=== PATIENT | male | born 1955 | race Caucasian/White ===

== ENCOUNTER 2016-10-31 08:08 | Outpatient (CLI) | payer OTHER ==
[2016-10-31 13:00] LABS: BASOPHILS % (AUTO) 0.6 %; EOSINOPHILS # (AUTO) 0.1 10^3/uL (0.0-0.7); HCT - HEMATOCRIT 46.9 % (42.0-52.0); LYMPHOCYTES # (AUTO) 1.8 10^3/uL (1.5-3.5); LYMPHOCYTES % (AUTO) 28.5 %; MEAN CORPUSCULAR HEMOGLOBIN 29.6 pg (27.0-31.0); MEAN CORPUSCULAR HGB CONC 34.1 g/dL (32.0-36.0); MEAN CORPUSCULAR VOLUME 86.6 fL (80.0-94.0); MEAN PLATELET VOLUME 8.4 fL (7.4-11.4); MONOCYTES # (AUTO) 0.6 10^3/uL (0.0-1.0); MONOCYTES % (AUTO) 8.6 %; NEUTROPHILS # (AUTO) 3.9 10^3/uL (1.5-6.6); NEUTROPHILS % (AUTO) 60.3 %; NUCLEATED RED BLOOD CELLS AUTO 0.1 /100WBC; RED BLOOD COUNT 5.41 10^6/uL (4.70-6.10); RED CELL DISTRIBUTION WIDTH 13.7 % (12.0-15.0); UNCORRECTED WHITE BLOOD COUNT 6.5 x10^3/uL; WHITE BLOOD COUNT 6.5 x10^3/uL (4.8-10.8)
[2016-10-31 13:02] LABS: ALBUMIN/GLOBULIN RATIO 1.8 (1.0-2.2); BILIRUBIN,TOTAL 0.6 mg/dL (0.2-1.0); CALCIUM 9.6 mg/dL (8.5-10.3); CREATININE 1.1 mg/dL (0.6-1.2); POTASSIUM 4.3 mmol/L (3.5-5.0); URIC ACID 6.4 mg/dL (2.6-7.2)
[2016-10-31 13:22] LABS: CHOL/HDL RATIO 4.7 (<5.0); CHOLESTEROL 212 mg/dL; HDL CHOLESTEROL 45 mg/dL; LDL/HDL RATIO 2.8 (<3.6); TRIGLYCERIDES 195 mg/dL; VLDL CHOLESTEROL 39 mg/dL
== END 2016-10-31 08:09 | disposition home or self-care (01) ==
LOC: LAB.WCP 08:08
PROVIDERS: ATTEND Physician Assistant Medical
DX: Z00.00 Encounter for general adult medical examination without abnormal findings (principal); M10.9 Gout, unspecified; Z12.5 Encounter for screening for malignant neoplasm of prostate
CPT/HCPCS: 36415; 80053; 80061; 84153; 84443; 84550; 85025

== ENCOUNTER 2016-11-08 12:28 | Outpatient (CLI) | payer OTHER ==
[2016-11-08 15:00] LABS: BILIRUBIN,URINE NEGATIVE (NEGATIVE)
[2016-11-08 15:34] LABS: UR CULTURE IF IND NOT INDICATED; WBC,URINE 0-3 /HPF (0-3)
== END 2016-11-08 12:29 | disposition home or self-care (01) ==
LOC: LAB.R 12:28
PROVIDERS: ATTEND Physician Assistant Medical
DX: R31.9 Hematuria, unspecified (principal)
CPT/HCPCS: 81001; 87086

== ENCOUNTER 2016-11-21 10:40 | Outpatient (CLI) | payer OTHER ==
--- NOTE | 2016-11-21 12:52 | CT Report ---
CT OF SINUSES WITHOUT CONTRAST: 11/21/2016 CLINICAL INDICATION: Chronic sinusitis. COMPARISON: 10/25/2006. TECHNIQUE: Axial CT images of the paranasal sinuses were obtained without contrast, following which s agittal and coronal reconstructions were performed. FINDINGS: Leftward deviation of the nasal septum is stable. The paranasal sinuses are clear. The ost iomeatal units are patent. The visualized orbital contents are unremarkable. No osseous destruction i s seen. The visualized mastoid air cells are normally pneumatized. IMPRESSION: STABLE LEFTWARD DEVIATION OF THE SEPTUM. NO EVIDENCE OF SINUSITIS. In accordance with CT protocol optimization, one or more of the following dose reduction techniques w ere utilized for this exam: automated exposure control, adjustment of mA and/or KV based on patient size, or use of iterative reconstructive technique. JOB #: [id number] EXT JOB #:[id number]
== END 2016-11-21 10:41 | disposition home or self-care (01) ==
LOC: DI 10:40
PROVIDERS: ATTEND Physician Assistant Medical
DX: J34.2 Deviated nasal septum (principal)
CPT/HCPCS: 70486

== ENCOUNTER 2017-04-06 09:11 | Outpatient (CLI) | payer OTHER ==
--- NOTE | 2017-04-07 14:53 | XRAY Report ---
EXAM: BILATERAL KNEE RADIOGRAPHY EXAM DATE: 04/06/2017 09:39 AM. CLINICAL HISTORY: KNEE Pain, bilateral. COMPARISON: None. TECHNIQUE: Each knee, 3 views. FINDINGS: Bones: Osteopenia. No definite fracture or other bone lesion. Joints: Bilateral medial joint space narrowing, right worse on left, with small amount of sclerosis o n the right and mild bilateral marginal lipping. At least 2 small loose bodies on the right. No defin ite joint effusion. Soft Tissues: Unremarkable. IMPRESSION: Moderate degenerative joint disease, right worse on left, with loose bodies on the right. [facility] Referring Provider Line: [phone] SITE ID: [id number]
== END 2017-04-06 09:12 | disposition home or self-care (01) ==
LOC: DI 09:11
PROVIDERS: ATTEND Physician Assistant Medical
DX: M17.0 Bilateral primary osteoarthritis of knee (principal); M23.41 Loose body in knee, right knee

== ENCOUNTER 2017-05-13 11:25 | Emergency (ER) | payer OTHER ==
--- NOTE | 2017-05-13 12:28 | ED Physician Documentation ---
PD HPI LOWER EXT INJURY - Stated complaint Stated Complaint: L LEG LUMP,SWELLING,RED,PX - Chief complaint Chief Complaint: Ext Problem - History obtained from History obtained from: Patient - History of Present Illness PD HPI LOW EXT INJURY LOCATION: Other (About 10 days ago he took a knee to his knee while taking playing basketball and developed a hematoma on the superomedial part of the left murphy. Over the next few days he developed calf swelling and tenderness down the calf with bruising all the way down to the foot. He is able to walk and bear weight without pain.There is no chest pain, trouble breathing, or history of DVT/PE.) Review of Systems Constitutional: reports: Reviewed and negative Cardiac: reports: Reviewed and negative Respiratory: reports: Reviewed and negative PD PAST MEDICAL HISTORY - Present Medications Home Medications: Ambulatory Orders Medication Instructions Recorded Confirmed Aspirin [Adult Aspirin Regimen] 81 mg PO DAILY 05/13/17 05/13/17 Diclofenac Sodium [Voltaren] 100 gm TOP BID 05/13/17 05/13/17 Esomeprazole Magnesium [Nexium] 20 mg PO DAILY 05/13/17 05/13/17 Febuxostat [Uloric] 40 mg PO DAILY 05/13/17 05/13/17 Montelukast [Singulair] 10 mg PO DAILY 05/13/17 05/13/17 PARoxetine HCl [Paroxetine HCl] 20 mg PO DAILY 05/13/17 05/13/17 Zolpidem Tartrate [Ambien] 10 mg PO DAILY 05/13/17 05/13/17 - Allergies Allergies/Adverse Reactions: Allergies Allergy/AdvReac Type Severity Reaction Status Date / Time No Known Drug Allergies Allergy Verified 05/13/17 12:14 PD ED PE NORMAL - Vitals Vital signs reviewed: Yes - General General: Alert and oriented X 3, No acute distress - Extremities Extremities: Other (There is a hematoma to the medial side of the tibial plateau that he says is improved but not gone. There is no tenderness of the tibia itself or any bony tenderness of the knee or fibula. He does have significant edema of that calf with ecchymosis tracking down into the foot. Good pedal pulses.) - Neuro Neuro: Alert and oriented X 3, Normal speech Results - Vitals Vitals: Vital Signs - 24 hr 05/13/17 05/13/17 12:06 14:34 Temperature 36.5 C Heart Rate 60 45 L Respiratory 18 12 Rate Blood Pressure 125/83 H 132/77 H O2 Saturation 94 96 Oxygen O2 Source Room air - Rads (name of study) LLE DVT scan Radiology: EMP read contemporaneously (No DVT, he does have a 6.5 x 1.4 x 3 cm hematoma) Departure - Departure Disposition: 01 Home, Self Care Clinical Impression: Hematoma Leg pain Qualifiers: Laterality: left Qualified Code(s): M79.605 - Pain in left leg Condition: Good Record reviewed to determine appropriate education?: Yes Instructions: ED Hematoma Comments: Check with your doctor in 1 week if not improving. Return if worse. Your blood pressure was elevated today on check into the emergency department. This does not mean that you have hypertension, it is a common phenomenon to come to the emergency department and have elevated blood pressure. I recommend that you see your primary care physician within the week to have it rechecked when you are feeling better.
--- NOTE | 2017-05-13 13:38 | Ultrasound Report ---
EXAM: LEFT LOWER EXTREMITY VENOUS ULTRASOUND EXAM DATE: 05/13/2017 01:19 PM. CLINICAL HISTORY: Leg swelling p injury. COMPARISON: None. TECHNIQUE: Real-time sonographic vascular imaging was performed by the stripper printed circuit boards through the lower extremity utilizing both color-flow and Doppler spectral analysis. Multiple electroplating sales representative static gilberto ges were saved for review. FINDINGS: Common Femoral Vein (CFV): Normal. CFV-GSV Junction: Normal. Profunda Femoral Vein (PFV): Normal. Femoral Vein (FV) Prox: Normal. Femoral Vein (FV) Mid: Normal. Femoral Vein (FV) Dist: Normal. Popliteal Vein: Normal. Posterior Tibial Veins: Normal. Peroneal Veins: Normal. Contralateral Side CFV: Normal. Other: There is a fluid collection which is palpable and located inferior to the knee measuring 6.5 x 1.4 x 3 cm. IMPRESSION: 1. Negative for deep venous thrombosis. 2. Subcutaneous fluid collection located inferior to knee, palpable and measuring 6.5 x 1.4 x 3 cm. I n setting of trauma, most likely hematoma. [facility] Referring Provider Line: [phone] SITE ID: [id number]
[2017-05-13 14:35] VITALS: BP 132/77
== END 2017-05-13 14:00 | disposition home or self-care (01) ==
LOC: ED 11:25
DX: S80.02XA Contusion of left knee, initial encounter (principal); W51.XXXA Accidental striking against or bumped into by another person, initial encounter; Y93.67 Activity, basketball; M79.605 Pain in left leg; R03.0 Elevated blood-pressure reading, without diagnosis of hypertension
CPT/HCPCS: 99283

== ENCOUNTER 2017-09-11 18:51 | Emergency (ER) | payer OTHER ==
[2017-09-11 19:03] VITALS: BP 148/77
--- NOTE | 2017-09-11 19:09 | ED Physician Documentation ---
PD HPI HEAD INJURY - Stated complaint Stated Complaint: CHEEK INJURY - Chief complaint Chief Complaint: Trauma Hd/Nk - History obtained from History obtained from: Patient - History of Present Illness Mechanism of head injury: Other (He was helping his grandson with [employer] and he took a line drive to the left jaw. Pain is minimal at rest but he is having difficulty moving the jaw and feels like it might be out of place.) Review of Systems Nose: denies: Rhinorrhea / runny nose, Epistaxis Musculoskeletal: denies: Neck pain, Back pain Neurologic: denies: Headache, LOC PD PAST MEDICAL HISTORY - Present Medications Home Medications: Ambulatory Orders Medication Instructions Recorded Confirmed Aspirin [Adult Aspirin Regimen] 81 mg PO DAILY 05/13/17 05/13/17 Esomeprazole Magnesium [Nexium] 20 mg PO DAILY 05/13/17 05/13/17 Febuxostat [Uloric] 40 mg PO DAILY 05/13/17 05/13/17 Montelukast [Singulair] 10 mg PO DAILY 05/13/17 05/13/17 PARoxetine HCl [Paroxetine HCl] 20 mg PO DAILY 05/13/17 05/13/17 Verapamil HCl [Verapamil ER] 240 mg 09/11/17 - Allergies Allergies/Adverse Reactions: Allergies Allergy/AdvReac Type Severity Reaction Status Date / Time probenecid Allergy Unknown Verified 09/11/17 19:03 PD ED PE NORMAL - Vitals Vital signs reviewed: Yes - General General: Alert and oriented X 3, No acute distress - HEENT HEENT: PERRL, EOMI, Other (There is a large contusion just above the angle of the jaw on the left, and he is tender over the TMJ in the area inferior to this but has good range of motion of the jaw no obvious intraoral injury.) - Neck Neck: Supple, no meningeal sign, No bony TTP - Neuro Neuro: Alert and oriented X 3, Normal speech - Psych Psych: Normal mood, Normal affect Results - Vitals Vitals: Vital Signs - 24 hr 09/11/17 18:52 Temperature 36.5 C Heart Rate 55 L Respiratory 20 Rate Blood Pressure 148/77 H O2 Saturation 98 Oxygen O2 Source Room air - Rads (name of study) CT facial bones Radiology: EMP read contemporaneously (Facial contusion and edema without fracture) Departure - Departure Disposition: 01 Home, Self Care Clinical Impression: Facial contusion Qualifiers: Encounter type: initial encounter Qualified Code(s): S00.83XA - Contusion of other part of head, initial encounter Condition: Good Record reviewed to determine appropriate education?: Yes Instructions: ED Head Injury Closed, ED Contusion Face Comments: Your blood pressure was elevated today on check into the emergency department. This does not mean that you have hypertension, it is a common phenomenon to come to the emergency department and have elevated blood pressure. I recommend that you see your primary care physician within the week to have it rechecked when you are feeling better.
--- NOTE | 2017-09-11 19:50 | CT Report ---
EXAM: CT MAXILLOFACIAL WITHOUT CONTRAST EXAM DATE: 09/11/2017 07:28 PM. CLINICAL HISTORY: Left jaw injury. Hit on left side of face with baseball. COMPARISONS: Sinus CT 11/21/2016. TECHNIQUE: Thin-section axial images were acquired of the face without contrast. Post-processing: Cor onal and sagittal reformats. Other: None. In accordance with CT protocol optimization, one or more of the following dose reduction techniques w ere utilized for this exam: automated exposure control, adjustment of mA and/or KV based on patient s ize, or use of iterative reconstructive technique. FINDINGS: Bones: Leftwards deviation and spurring of the bony nasal septum with associated focal occlusion of t he naris. No fracture or bone lesion. Temporomandibular Joints: The temporomandibular joints are symmetric and normally located. Sinuses: Minimal mucosal thickening in the inferior left frontal sinus, right maxillary sinus roof, a nd left maxillary sinus. Otherwise clear. No fluid levels. Other: Superficial fat stranding in the left buccal region, compatible with edema/contusion. IMPRESSION: 1. Left facial edema/contusion. 2. No acute bony abnormality. [facility] Referring Provider Line: [phone] SITE ID: [id number]
--- NOTE | 2017-09-11 19:50 | CT Preliminary Report ---
Exam: CT FACIAL BONES W/O IMPRESSION: 1. Left facial edema/contusion. 2. No acute bony abnormality. [facility] SITE ID: [id number]
== END 2017-09-11 20:11 | disposition home or self-care (01) ==
LOC: ED 18:51
DX: S00.83XA Contusion of other part of head, initial encounter (principal); R03.0 Elevated blood-pressure reading, without diagnosis of hypertension; W21.03XA Struck by baseball, initial encounter; Y93.64 Activity, baseball; Z79.82 Long term (current) use of aspirin
CPT/HCPCS: 70486; 99282; 99283

== ENCOUNTER 2018-01-14 11:44 | Outpatient (CLI) | payer OTHER | END 2018-01-14 11:45 | disposition home or self-care (01) | LOC: LAB.R 11:44 | PROVIDERS: ATTEND Internal Medicine Gastroenterology | DX: R19.7 Diarrhea, unspecified (principal) | CPT/HCPCS: 81599; 87045; 87046; 87177; 87209; 87329; 87493 ==

== ENCOUNTER 2018-06-13 15:39 | Emergency (ER) | payer OTHER ==
[2018-06-13] MEDS ORDERED: diphenhydrAMINE INJ 50 MG/ML VIAL IVP STA (17:37)
[2018-06-13] MEDS ORDERED: SODIUM CHLORIDE 0.9% 1,000 ML IV ONE (17:37)
[2018-06-13] MEDS ORDERED: PROCHLORPERAZINE 10 MG/2 ML VIAL IVP STA (17:37)
[2018-06-13] MEDS ORDERED: DEXAMETHASONE 10 MG/ML VIAL IVP STA (17:38)
[2018-06-13] MEDS ORDERED: KETOROLAC 30 MG/ML VIAL IVP STA (17:40)
--- NOTE | 2018-06-13 17:41 | ED Physician Documentation ---
PD HPI HEADACHE - Stated complaint Stated Complaint: AMAYA - Chief complaint Chief Complaint: Neuro - History obtained from History obtained from: Patient, Family (spouse) - History of Present Illness Timing - onset: How many days ago (3) Timing - details: Still present Worst headache ever?: Worst headache ever? (No) Location: Right Worsened by: Light, Moving Similar symptoms before: Diagnosis (History of migraine headaches.) - Treatment prior to arrival Treatment prior to arrival: Aimovig injection, without relief. - Additional information Additional information: The patient is a 62-year-old male with history of migraine headaches, who presents with right sided headache of 3 days' duration. He reports associated photosensitivity. He denies fever, nausea or vomiting, numbness or weakness. He has given himself an Aimovig injection, without relief. The last time he had a headache this bad was a couple of years ago. Review of Systems Constitutional: denies: Fever Eyes: reports: Photophobia. denies: Decreased vision Ears: denies: Tinnitus/ringing Nose: denies: Congestion Throat: denies: Sore throat Cardiac: denies: Chest pain / pressure, Palpitations Respiratory: denies: Dyspnea, Cough GI: denies: Abdominal Pain, Nausea, Vomiting : denies: Dysuria Skin: denies: Rash Musculoskeletal: denies: Neck pain, Back pain Neurologic: reports: Headache. denies: Focal weakness, Numbness PD PAST MEDICAL HISTORY - Past Medical History Cardiovascular: Arrhythmia (History of ventricular trigeminy.) Neuro: Headaches GI: GERD - Past Surgical History Past Surgical History: No - Present Medications Home Medications: Ambulatory Orders Medication Instructions Recorded Confirmed Aspirin [Adult Aspirin Regimen] 81 mg PO DAILY 05/13/17 06/13/18 Esomeprazole Magnesium [Nexium] 20 mg PO DAILY 05/13/17 06/13/18 Febuxostat [Uloric] 40 mg PO DAILY 05/13/17 06/13/18 Montelukast [Singulair] 10 mg PO DAILY 05/13/17 06/13/18 PARoxetine HCl [Paroxetine HCl] 20 mg PO DAILY 05/13/17 06/13/18 Erenumab-Aooe [Aimovig 70 mg SQ ONCE 06/13/18 06/13/18 Autoinjector] - Allergies Allergies/Adverse Reactions: Allergies Allergy/AdvReac Type Severity Reaction Status Date / Time probenecid Allergy Unknown Verified 06/13/18 15:54 - Social History Does the pt smoke?: No Smoking Status: Never smoker Does the pt drink ETOH?: No Does the pt have substance abuse?: No - Immunizations Immunizations are current?: Yes - POLST Patient has POLST: No PD ED PE NORMAL - Vitals Vital signs reviewed: Yes (Initially hypertensive.) - General General: Alert and oriented X 3, Well developed/nourished - HEENT HEENT: Atraumatic, PERRL, EOMI, Moist mucous membranes, Pharynx benign, Other (Fundi without papilledema.) - Neck Neck: Supple, no meningeal sign, No adenopathy, No JVD - Cardiac Cardiac: Other (Regular rate, with irregular rhythm. monitoring manager reveals trigeminy.) - Respiratory Respiratory: No respiratory distress, Clear bilaterally - Abdomen Abdomen: Soft, Non tender - Back Back: No CVA TTP - Derm Derm: No rash - Extremities Extremities: No edema, No calf tenderness / cord - Neuro Neuro: Alert and oriented X 3, No motor deficit, No sensory deficit, Normal speech Results - Vitals Vitals: Oxygen O2 Source Room air - EKG (time done) 17:38 Rate: Rate (enter#) (59) Rhythm: NSR, Other (Ventricular trigeminy) [place]: Normal Intervals: Normal OR QRS: Normal Ischemia: Non specific changes (Nonspecific T-wave flattening.) Compare to prior EKG: Old EKG unavailable Computer interpretation: Agree with computer PD MEDICAL DECISION MAKING - ED course Complexity details: reviewed results, re-evaluated patient, considered differential, d/w patient ED course: The patient's presentation is significant for cephalgia. This may be a migraine headache. His clinical presentation does not suggest meningitis, subarachnoid hemorrhage, temporal arteritis, or pseudotumor cerebri. Treatment in the emergency department included administration of normal saline 1 L IV, ketorolac 30 mg IV, prochlorperazine might 10 mg IV, diphenhydramine 25 mg IV, and dexamethasone 10 mg IV. His headache completely resolved with the above treatment. An EKG was performed, and it reveals ventricular bigeminy without evidence of ischemic abnormalities. The patient's blood pressure remained hypertensive, even after the resolution of his headache. I discussed with him symptomatic treatment, outpatient follow-up, as well as potentially worrisome signs or symptoms that should prompt reevaluation in the emergency department. Departure - Departure Disposition: 01 Home, Self Care Clinical Impression: Cephalgia Qualifiers: Headache type: unspecified Headache chronicity pattern: acute headache Intractability: not intractable Qualified Code(s): R51 - Headache Hypertension Qualifiers: Hypertension type: unspecified secondary hypertension Qualified Code(s): I15.9 - Secondary hypertension, unspecified; I15 - Secondary hypertension Condition: Stable Instructions: ED Headache Migraine Follow-Up: Bridget Forde PA-C [Primary Care Provider] - Comments: Drink plenty of fluids. You can use your previously prescribed medication as needed for headache. Follow-up with your primary physician within 1-2 weeks. Call to schedule appointment. Return to the emergency department if you develop recurrent or worsening headache, persistent vomiting, or otherwise worsening symptoms Discharge Date/Time: 06/13/18 18:50
[2018-06-13 18:50] VITALS: BP 174/114
== END 2018-06-13 18:50 | disposition home or self-care (01) ==
LOC: ED 15:39
DX: R51 Headache (principal); I15.9 Secondary hypertension, unspecified; R94.31 Abnormal electrocardiogram [ECG] [EKG]; Z79.82 Long term (current) use of aspirin
CPT/HCPCS: 93005; 96374; 99283; J1200

== ENCOUNTER 2019-07-13 09:45 | Outpatient (CLI) | payer OTHER ==
[2019-07-13] MEDS ORDERED: IOVERSOL 320 100 ML VIAL IVP ONE ×2 (09:53→11:54)
[2019-07-13] MEDS ORDERED: IOVERSOL 320 50 ML VIAL ONE (09:53)
[2019-07-13 10:09] LABS: CREATININE 1.3 mg/dL (0.6-1.2)
[2019-07-13] MEDS ORDERED: IOVERSOL 320 50 ML VIAL PO ONE (11:54)
--- NOTE | 2019-07-14 02:11 | CT Report ---
Reason: GROIN PAIN Procedure Date: 07/13/2019 Accession Number: [id number] / [id number] Procedure: CT - PELVIS W CPT Code: Final Report FULL RESULT: EXAM: CT PELVIS EXAM DATE: 07/13/2019 11:02 AM. CLINICAL HISTORY: GROIN PAIN. COMPARISONS: ABDOMEN/PELVIS W/O 04/16/2016 1:50 PM. TECHNIQUE: Routine helical CT imaging was performed through the pelvis. IV contrast: OPTIRAY 320, 100 cc. Enteric contrast: Yes. Reconstructions: Coronal and sagittal. In accordance with CT protocol optimization, one or more of the following dose reduction techniques were utilized for this exam: automated exposure control, adjustment of mA and/or KV based on patient size, or use of iterative reconstructive technique. FINDINGS: Visualized Abdominal Organs: Normal. Peritoneal Cavity/Bowel: No bowel obstruction seen. No free air or free fluid. No diverticulitis. No lymphadenopathy. Umbilical hernia containing fat. No inguinal hernia identified. Appendix appears normal. Pelvic Organs: Normal. The bladder, rectum, and visualized pelvic organs are within normal limits. Vasculature: Mild atherosclerosis. No aneurysm seen. Bones: Degenerative changes in the spine. Other: None. IMPRESSION: 1. No inguinal hernia identified. 2. Umbilical hernia containing fat, unchanged. 3. No other acute abnormality seen. [facility]
== END 2019-07-13 09:46 | disposition home or self-care (01) ==
LOC: DI 09:45
PROVIDERS: ATTEND Surgery
DX: K42.9 Umbilical hernia without obstruction or gangrene (principal); R10.30 Lower abdominal pain, unspecified
CPT/HCPCS: 36415; 72193; 82565; Q9967

== ENCOUNTER 2019-09-25 15:34 | Outpatient (CLI) | payer MEDICARE, OTHER | END 2019-09-25 15:35 | disposition home or self-care (01) | LOC: LAB 15:34 | PROVIDERS: ATTEND Surgery | DX: K42.9 Umbilical hernia without obstruction or gangrene (principal) | CPT/HCPCS: 81599 ==

== ENCOUNTER 2019-12-02 08:47 | Outpatient (CLI) | payer MEDICARE, OTHER ==
--- NOTE | 2019-12-03 17:01 | Nuclear Medicine Report ---
PROCEDURE: Bone 3-Phase INDICATIONS: PT UNICOMPARTMENTAL KNEE REPLACEMENT RADIOPHARMACEUTICAL: 25.3 mCi Tc-99m MDP IV. TECHNIQUE: Multiple bone scintigrams were obtained after intravenous injection of Tc-99m MDP, including flow, bl ood pool, and delayed images centered to the region of interest. COMPARISON: None available. FINDINGS: The flow and blood pool images demonstrate symmetrical vascular activity to lower extremit ies centered to the knees. Delayed images demonstrate photopenia in the lateral compartment of the le ft knee and medial and lateral compartments of the right knee, likely secondary to prior knee arthrop lasties. There is no scintigraphic findings to suggest listhesis loosening or infection. IMPRESSION: Expected postsurgical changes on this triple phase bone scan. No scintigraphic findings to suggest prosthesis loosening or infection. Please correlate with radiographic findings. Reviewed by: Asif Sanchez MD on 12/03/2019 4:59 PM PDT Approved by: Asif Sanchez MD on 12/03/2019 4:59 PM PDT Station ID: [id number]
== END 2019-12-02 08:48 | disposition home or self-care (01) ==
LOC: DI 08:47
PROVIDERS: ATTEND Physician Assistant
DX: Z96.651 Presence of right artificial knee joint (principal)
CPT/HCPCS: 78315

== ENCOUNTER 2020-05-09 09:42 | Outpatient (CLI) | payer MEDICARE, OTHER ==
--- NOTE | 2020-05-09 11:10 | XRAY Report ---
PROCEDURE: Knee 4 View BILAT INDICATIONS: L AND R KNEE PX TECHNIQUE: 3 views of the right and left right knee medial compartment hemiarthroplasty changes note d. Moderate osteoarthritis noted in the medial compartment of the left knee and in the patellofemoral compartments of the knees bilaterally. Mild osteoarthritis noted in the lateral compartment of the k nees bilaterally. knee(s) were acquired. COMPARISON: None. FINDINGS: Bones: No fractures or dislocations. No suspicious bony lesions. Soft tissues: No joint effusion. No suspicious soft tissue calcifications. IMPRESSION: 1. Status post right knee medial unicondylar arthroplasty. 2. Bilateral knee osteoarthritis as described above. Reviewed by: Aleta Mosley MD, PhD on 05/09/2020 11:09 AM PST Approved by: Aleta Mosley MD, PhD on 05/09/2020 11:09 AM PST Station ID: [id number]
== END 2020-05-09 23:59 | disposition home or self-care (01) ==
LOC: DI.N 09:42
PROVIDERS: ATTEND Orthopaedic Surgery
DX: M17.0 Bilateral primary osteoarthritis of knee (principal)

== ENCOUNTER 2020-05-17 07:31 | Day surgery (SDC) | payer MEDICARE, OTHER ==
[2020-05-17] MEDS ORDERED: LACTATED RINGERS 1,000 ML IV ONE ×2 (08:07→09:31)
[2020-05-17] MEDS ORDERED: MIDAZOLAM 2 MG/2 ML VIAL ONE ×2 (08:26→09:02)
[2020-05-17] MEDS ORDERED: fentaNYL 250 MCG/5 ML VIAL ONE (08:26)
[2020-05-17 09:52] VITALS: BP 144/100
== END 2020-05-17 07:32 | disposition home or self-care (01) ==
LOC: SDS 07:31
PROVIDERS: ATTEND Surgery
PROC: 0DBL8ZZ Excision of Transverse Colon, Via Natural or Artificial Opening Endoscopic (ICD-10-PCS; 2020-05-17)
PROC: 0DBN8ZZ Excision of Sigmoid Colon, Via Natural or Artificial Opening Endoscopic (ICD-10-PCS; 2020-05-17)
PROC: 0DBM8ZZ Excision of Descending Colon, Via Natural or Artificial Opening Endoscopic (ICD-10-PCS; principal; 2020-05-17 08:30)
DX: Z12.11 Encounter for screening for malignant neoplasm of colon (principal); D12.3 Benign neoplasm of transverse colon; D12.5 Benign neoplasm of sigmoid colon; K64.8 Other hemorrhoids; D12.4 Benign neoplasm of descending colon; K57.30 Diverticulosis of large intestine without perforation or abscess without bleeding; G47.30 Sleep apnea, unspecified
CPT/HCPCS: 45385; J3010; J7120

== ENCOUNTER 2020-06-09 08:00 | Outpatient (CLI) | payer MEDICARE, OTHER | END 2020-06-09 23:59 | disposition home or self-care (01) | LOC: LAB.N 08:00 | PROVIDERS: ATTEND Orthopaedic Surgery | DX: Z01.812 Encounter for preprocedural laboratory examination (principal); Z20.822 Contact with and (suspected) exposure to COVID-19 ==

== ENCOUNTER 2020-06-15 10:56 | Day surgery (SDC) | payer MEDICARE, OTHER ==
[~2020-06-15 10:56] MED LIST: ACETAMINOPHEN 1,000 MG/100 ML 100 ML IV ONE; ceFAZolin 2 GM/50 ML 2 GM/50 ML BAG IV ONE
[2020-06-15] MEDS ORDERED: LACTATED RINGERS 1,000 ML IV ONE ×2 (11:30→13:55)
--- NOTE | 2020-06-15 11:48 | ANESTHESIA ---
Pre-Anesthesia VS, & Labs - Diagnosis exostosis right tibia - Procedure excision exostosis proximal right tibia Vital Signs: Temp Pulse Resp BP Pulse Ox 36.4 C L 64 16 135/88 H 94 06/15/20 11:05 06/15/20 11:05 06/15/20 11:05 06/15/20 11:05 06/15/20 11:05 Height: 6 ft Weight (kg): 110 kg Body Mass Index: 32.8 BMI Classification: Obese Home Medications and Allergies Home Medications: Ambulatory Orders Hydrocodone/Acetaminophen [Hydrocodone-Acetamin 5-325 mg] 1 - 2 each PO BID 06/13/20 Metoprolol Tartrate [Lopressor] 25 mg PO BID 06/13/20 Zolmitriptan [Zomig] 1 spray NS BID PRN 06/13/20 Tadalafil [Cialis] 2.5 mg PO DAILY 06/15/20 Aspirin [Adult Aspirin Regimen] 81 mg PO DAILY 05/13/17 Esomeprazole Magnesium [Nexium] 20 mg PO DAILY 05/13/17 Febuxostat [Uloric] 40 mg PO DAILY 05/13/17 Erenumab-Aooe [Aimovig Autoinjector] 140 mg SQ ONCE 06/13/18 Alfuzosin HCl [Alfuzosin HCl ER] 10 mg PO DAILY 09/29/19 Cholecalciferol [Vitamin D3] 5,000 unit PO DAILY 09/29/19 Gabapentin 300 - 600 mg PO BID 09/29/19 Magnesium 250 mg PO DAILY 09/29/19 Meloxicam 15 mg PO DAILY 09/29/19 Hydrocodone/Acetaminophen [Hydrocodone-Acetamin 5-325 mg] 1 - 2 each PO BID 06/13/20 Metoprolol Tartrate [Lopressor] 25 mg PO BID 06/13/20 Zolmitriptan [Zomig] 1 spray NS BID PRN 06/13/20 Tadalafil [Cialis] 2.5 mg PO DAILY 06/15/20 Allergies/Adverse Reactions: Allergies Allergy/AdvReac Type Severity Reaction Status Date / Time probenecid Allergy flushed Verified 06/13/20 14:18 Anes History & Medical History - Anesthetic History Anesthesia Complications: reports: No previous complications - Medical History Cardiovascular: reports: Hypertension, Arrhythmia Pulmonary: reports: Sleep apnea Gastrointestinal: reports: GERD, Hiatal hernia, Colon polyps Urinary: reports: Benign prostate hypertrophy Neuro: reports: Headaches Musculoskeletal: reports: Osteoarthritis, Gout, Other Endocrine/Autoimmune: reports: None Skin: reports: Rosacea, Other Smoking Status: Never smoker - Surgical History General: Colonoscopy, EGD Eyes Ears Nose Throat (EENT): Other Orthopedic: Knee replacement, Other Exam General: Alert, Oriented x3 Dental: WNL Mouth Opening: Greater than 4 Fingerbreadths Neck Mobility: Normal Mallampati classification: III Thyromental Distance: greater than 6 cm Respiratory: Lungs clear Cardiovascular: Regular rate Plan Anesthesia Type: General Consent for Procedure(s) Verified and Reviewed: Yes Code Status: Attempt Resuscitation ASA classification: 2-Mild systemic disease Is this case an emergency?: No
[2020-06-15] MEDS ORDERED: BUPIVACAINE 0.25% PF 10 ML VIAL ONE (12:12)
[2020-06-15] MEDS ORDERED: BUPIVACAINE 0.25% PF 30 ML VIAL SUBQ ONE ×2 (12:28→13:38)
[2020-06-15] MEDS ORDERED: HYDROmorphone 0.5 MG/0.5 ML SYRINGE IVP PRN (12:49)
[2020-06-15] MEDS ORDERED: ONDANSETRON 4 MG/2 ML VIAL IVP PRN (12:49)
[2020-06-15] MEDS ORDERED: MORPHINE 2 MG/ML CARPUJECT IVP PRN (12:49)
[2020-06-15] MEDS ORDERED: ATROPINE ABBOJECT 1 MG/10 ML SYRINGE IVP PRN (12:49)
[2020-06-15] MEDS ORDERED: NALOXONE 0.4 MG/ML VIAL IVP PRN (12:49)
[2020-06-15] MEDS ORDERED: METOCLOPRAMIDE 10 MG/2 ML VIAL IVP PRN (12:49)
[2020-06-15] MEDS ORDERED: ePHEDrine 50 MG/ML VIAL IVP PRN (12:49)
[2020-06-15] MEDS ORDERED: fentaNYL 100 MCG/2 ML VIAL IVP PRN (12:49)
[2020-06-15] MEDS ORDERED: fentaNYL 100 MCG/2 ML VIAL ONE (12:55)
[2020-06-15] MEDS ORDERED: PROPOFOL 200 MG/20 ML VIAL IVP ONE (12:55)
[2020-06-15] MEDS ORDERED: LIDOCAINE-MPF 2% 5 ML VIAL ONE (12:55)
[2020-06-15] MEDS ORDERED: MIDAZOLAM 2 MG/2 ML VIAL ONE (12:55)
[2020-06-15] MEDS ORDERED: LACTATED RINGERS 1,000 ML IV SCH (13:00)
[2020-06-15] MEDS ORDERED: ONDANSETRON 4 MG/2 ML VIAL ONE (13:32)
[2020-06-15] MEDS ORDERED: KETOROLAC 30 MG/ML VIAL ONE (13:32)
--- NOTE | 2020-06-15 13:40 | OPERATIVE REPORT ---
Operative Report - General Procedure Date: 06/15/20 Pre-Op Diagnosis: Exostosis proximal right tibia, posttraumatic Procedure Performed: Removal of exostosis proximal right tibia Post Op Diagnosis: Same as preoperative diagnosis. - Procedure Note Primary Surgeon: Kiel Cabezas MD Secondary Surgeon: Fuad LEMOS Anesthesia Provider: Ronen Watkins CRNA Anesthesia Technique: General mask Estimated Blood Loss (mL): 3 Indications: This 64-year-old gentleman with bilateral knee osteoarthritis had an injury to the proximal right tibia from a direct blow. The direct blow was over the murphy proximally of the right tibia and was associated with hematoma and subsequent painful exostosis. The exostosis which is close to skin is symptomatic with direct pressure or kneeling and this was the reason for the removal.He has had this small mass for 1 to 2 years. His symptoms have not improved with time. Findings: There was a tibia exostosis measuring about a centimeter by 0.5 mm near the lateral aspect of the tibial tubercle. Complications: None - Other Other Information/Narrative: The patient was brought to the operating room table, placed in the supine position. The right lower extremity was prepped and draped in a sterile manner in the usual fashion. A timeout procedure was done by the entire operating room team and all were in agreement. No tourniquet was utilized. A 2 cm incision was made just lateral to the mass of the proximal right tibial tubercle region. The fascia was split over the mass. The mass was exposed subperiosteally. This was a bony exostosis. A motorized bur was used to gently remove the exostosis in layers to create a slight concavity with tapering to the sides of the mass. The entire bony protrusion was removed. There was no abnormality to the appearance of the bone. A small amount of bone wax was applied after irrigation of the wound and bone. A subcuticular 3-0 Monocryl closure was performed with Dermabond. Dry sterile dressing with silver was applied. He tolerated the procedure well. A physician assistant golf coach was used to help expose the exostosis and facilitate prepping, draping and wound closure.
[2020-06-15] MEDS ORDERED: KETOROLAC 15 MG/ML VIAL IVP STA (13:54)
[2020-06-15] MEDS ORDERED: HYDROcod/ACETAM 5/325 MG TABLET PO PRN (13:54)
[2020-06-15] MEDS ORDERED: HYDROcod/ACETAM 5/325 MG TABLET ONE (14:54)
--- NOTE | 2020-06-15 14:56 | ANESTHESIA POST OP EVALUATION ---
Anesthesia Post Eval - Post Anesthesia Eval Vitals: Last Vital Signs Temp 36.1 C L 06/15/20 14:46 Pulse 51 L 06/15/20 14:46 Resp 12 06/15/20 14:46 BP 136/67 H 06/15/20 14:46 Pulse Ox 96 06/15/20 14:46 CV Function Including HR & BP: positive: Stable Pain Control: positive: Satisfactory Nausea & Vomiting: positive: Negative Mental Status: positive: Patient Participates Respiratory Status: Airway Patent Hydration Status: Satisfactory Anesthesia Complications: positive: None
[2020-06-15 15:05] VITALS: BP 144/73
== END 2020-06-15 10:57 | disposition home or self-care (01) ==
LOC: SDS 10:56
PROVIDERS: ATTEND Orthopaedic Surgery
DX: M89.8X6 Other specified disorders of bone, lower leg (principal); M17.0 Bilateral primary osteoarthritis of knee; I10 Essential (primary) hypertension; G47.30 Sleep apnea, unspecified; E66.9 Obesity, unspecified; Z68.32 Body mass index [BMI] 32.0-32.9, adult; Z96.651 Presence of right artificial knee joint
CPT/HCPCS: 27635; A9270; J0131; J0690; J7120

== ENCOUNTER 2020-08-01 11:00 | Outpatient (CLI) | payer MEDICARE, OTHER ==
--- NOTE | 2020-08-01 13:44 | SLEEP CARE CONSULTATION ---
Information from patient questionnaire entered by Nain Valdez. I have reviewed and concur with the information entered by Nain Valdez. This document represents the service I personally performed and the decisions made by me, Brian Cain MD, [facility]. History of Present Illness Service Date and Time: 08/01/2020 1100 Reason for Visit: New patient, Previously diagnosed sleep apnea Chief Complaint: reports: Unrefreshed sleep, Snoring, Excessive daytime sleepi ness, Fatigue Date of Onset: years Usual bedtime: It varies Time it takes to fall asleep: A few minutes Snores at night: Yes Observed to quit breathing while asleep: Yes Sleeps alone due to snoring: No Number of times waking at night: 2-3 Reasons for waking at night: reports: Bathroom Toss, Turn, or Twitch while sleeping: No Recalls having dreams: No Usually gets out of bed at: 7-8 Feels refreshed in the morning: No Morning headache: No Sleepy or fatigued during the day: Yes Ever fallen asleep while driving: Yes Takes day naps: Yes (sometimes) Dreams during day naps: No Prior sleep studies: Yes Year and Where: 2008 [facility] Additional HPI information: I had the pleasure of seeing Mr. Clayton today regarding obstructive sleep apnea-hypopnea. As you know, he is a 64 year old gentleman who was diagnosed here in 2008 with very severe obstructive sleep apnea-hypopnea (AHI was 91.3 and jenise oxygen saturation, 81%). He tried using a CPAP for 1 2 months. He wore a nasal mask. Two years ago, he went to see a dentist in [place] and was fitted with a mandibular advancing device. He reports better sleep quality and less snore. He is about to have it adjusted. The patient also is requesting a letter to the [facility] stating that he more likely than not had obstructive sleep apnea-hypopnea during his service in the . He has provided me with letters from coworkers and his stating that he used to snore and quit breathing while he was active in the . 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 Patient is and lives in [place]. Have you smoked in the past 12 months: No Alcohol use: Yes Alcohol amount and frequency: 2 oz every other week Caffeine use: Yes Caffeine amount and frequency: several cups of diet pepsi Family History Family history of sleep disordered breathing: Yes (Father) Allergies and Home Medications Drug allergies reviewed: Yes Home medication list reviewed: Yes Review of Systems Weight loss over past 5 years: 15 Cardiovascular: reports: high blood pressure Respiratory: denies: shortness of breath, wheeze, sputum production, chronic cough, other Gastrointestinal: reports: difficulty swallowing Urinary: reports: urgency Neurological: reports: headaches Psychiatric: reports: anxiety Ear/Nose/Throat: reports: sinus problems, injury to nose, wisdom teeth removed Musculoskeletal: reports: joint pain (stiffness), back pain, joint swelling, muscle pain or cramping Immunologic: denies: sneezing, rash, itching, allergies to food or environment, other Physical Exam Vital signs obtained and entered by: To minimize the risk of COVID-19 exposure, detailed exam was not performed. Height: 6 ft Weight: 235 lb Body Mass Index: 31.8 BMI Classification: Obese Impression and Plan IMPRESSION: 1. Obstructive Sleep Apnea-Hypopnea Syndrome, very severe as diagnosed in 2019. The patient is being treated with oral appliance therapy. H gabriel reports some benefits from the treatment but still snores. Narrow oropharynx and obesity are common predisposing factors for obstructive sleep apnea-hypopnea syndrome. I recommend another in-laboratory polysomnography to determine the efficacy of the oral appliance therapy. If not effective, CPAP therapy will have to be reconsidered. I showed him new masks that are much more comfortable than those available 12 years ago. Plan: 1. Letter written to the [facility] stating that the patient more likely than had severe obstructive sleep apnea-hypopnea several years prior to being diagnosed here in 2008. 2. Repeat polysomnography with the patient wearing his oral appliance to see how effective it is. 3. Repeat diagnostic in-laboratory polysomnography if he would like to switch over to CPAP. 4. Attempt to lose weight. Follow up recommended for: Weight management Time Spent with Patient (minutes): 20
== END 2020-08-01 11:01 | disposition home or self-care (01) ==
LOC: SC 11:00
PROVIDERS: ATTEND Internal Medicine Pulmonary Disease
DX: G47.33 Obstructive sleep apnea (adult) (pediatric) (principal); E66.9 Obesity, unspecified; Z68.31 Body mass index [BMI] 31.0-31.9, adult
CPT/HCPCS: 99202; G0463; 99212

== ENCOUNTER 2020-12-19 13:37 | Outpatient (CLI) | payer MEDICARE, OTHER ==
--- NOTE | 2020-12-19 15:14 | SLEEP CARE CONSULTATION ---
Information from patient questionnaire entered by Rossy Garcia. I have reviewed and concur with the information entered by Rossy Garcia. This document represents the service I personally performed and the decisions made by me, Brian Cain MD, [facility]. History of Present Illness Service Date and Time: 12/19/2020 1337 Previous diagnosis: Extremely Severe, Obstructive Sleep Apnea-Hypopnea Syndrome AHI: 91.3 (in 2008) Reason for follow up: other (4 month with oral appliance) Prior sleep studies: Yes Year and Where: 2008 - [facility] Type of Sleep Study: Polysomnography HPI additional information: HPI: Mr. Clayton was diagnosed to have very severe obstructive sleep apnea- hypopnea syndrome in 2008 and returned today for follow up. He presently is using an oral appliance which he does not think works anymore. He wakes up frequently at night and feels tired during the day. He would like to try CPAP. Subjective Initial [place] Sleepiness Scale score: 11 (in 2008) Current [place] Sleepiness Scale score: 10 Allergies and Home Medications Drug allergies reviewed: Yes Home medication list reviewed: Yes Review of Systems Review of systems same as previous: Yes Physical Exam Vital signs obtained and entered by: To minimize the risk of COVID-19 exposure, detailed exam was not perfo Height: 6 ft Impression and Plan IMPRESSION: 1. Obstructive Sleep Apnea-Hypopnea Syndrome, very severe, on oral appliance therapy which is probably not effective. I will order a home sleep apnea test (HSAT) to confirm the diagnosis and use it to order him a CPAP device. We also discussed the hypoglossal nerve stimulation because he failed CPAP in the past. PLAN: 1. Home sleep apnea test (HSAT) 2. He was recommended discuss the [facility] further with Dr. Randy Flynn M.D. in [place] who performs the procedure. 3. Return for a full face mask after the test. Counseling Topics: Sleeping position Visit Type: In Office Time Spent with Patient (minutes): 15 Provider Statement: I spent 100% of the Face to Face Visit with the patient with greater than 50% spent counseling the patient and coordination of care.
== END 2020-12-19 13:38 | disposition home or self-care (01) ==
LOC: SC 13:37
PROVIDERS: ATTEND Internal Medicine Pulmonary Disease
DX: G47.33 Obstructive sleep apnea (adult) (pediatric) (principal)
CPT/HCPCS: 99212; G0463

== ENCOUNTER 2020-12-26 12:31 | Outpatient (CLI) | payer MEDICARE, OTHER | END 2020-12-26 12:32 | disposition home or self-care (01) | LOC: SC 12:31 | PROVIDERS: ATTEND Internal Medicine Pulmonary Disease | DX: G47.33 Obstructive sleep apnea (adult) (pediatric) (principal); R09.02 Hypoxemia | CPT/HCPCS: G0399 ×2; 95806 ==

== ENCOUNTER 2021-02-13 13:17 | Outpatient (CLI) | payer MEDICARE, OTHER ==
--- NOTE | 2021-02-13 14:31 | SLEEP CARE CONSULTATION ---
Information from patient questionnaire entered by Genevieve Torres. I have reviewed and concur with the information entered by Genevieve Torres. This document represents the service I personally performed and the decisions made by me, Brian Cain MD, [facility]. History of Present Illness Service Date and Time: 02/13/2021 1317 Initial [place] Sleepiness Scale score: 12 Current [place] Sleepiness Scale score: 12 Additional HPI information: Mr. Clayton returned for follow up of the sleep study he had on 12/26/2020. The test showed very severe obstructive sleep apnea-hypopnea with an AHI of 70.9 and jenise oxygen saturation of 70%. The respiratory events occurred independently of body position. EKG showed occasional bradycardia with heart rate in the 30s. The patient was informed of these findings. I explained to him the patho physiology behind obstructive sleep apnea. We then spent quite a bit of time discussing different treatment options. For mild obstructive sleep apnea, surgery and oral appliance are alternatives to nasal CPAP therapy but in moderate or severe cases, nasal CPAP is the most effective and reliable treatment. Weight loss in an obese individual is strongly recommended. After some discussion, he opted to go with the nasal CPAP therapy. He tried the oral appliance therapy in the past but it did not work well. Sleep Study - Results Type of Sleep Study: Home sleep study Prior sleep studies: Yes Year and Where: 2020(HST)/ 2008(in lab) [facility] Physical Exam Height: 6 ft Impression and Plan IMPRESSION: 1. Obstructive Sleep Apnea-Hypopnea Syndrome, very severe, associated with moderate hypoxemia. The result is very similar to that of the in-laboratory polysomnography performed in 2008. Obviously this is the cause of the patients symptoms of unrefreshed sleep, and excessive daytime sleepiness. As mentioned above, the patient will be started on an autoCPAP set at 5 - 15 cmH 2O. Depending on his response and compliance he may be brought back for an overnight CPAP titration study. PLAN: 1. Prescription made for an autoCPAP, heated humidifier, and related supplies. 2. Attempt to lose weight and avoid alcohol consumption near bedtime. 3. The patient is again cautioned about driving until his sleepiness completely resolves on the CPAP therapy. 4. Return for follow up after one month of using the CPAP. Prescriptions: Auto CPAP Follow up with Sleep Care in: 1-2 months Follow up recommended for: Weight management Visit Type: In Office Time Spent with Patient (minutes): 20 Provider Statement: I spent 100% of the Face to Face Visit with the patient with greater than 50% spent counseling the patient and coordination of care.
== END 2021-02-13 13:18 | disposition home or self-care (01) ==
LOC: SC 13:17
PROVIDERS: ATTEND Internal Medicine Pulmonary Disease
DX: G47.33 Obstructive sleep apnea (adult) (pediatric) (principal)
CPT/HCPCS: 99213; G0463; 99212

== ENCOUNTER 2021-07-25 16:04 | Outpatient (CLI) | payer MEDICARE, OTHER ==
[2021-07-25 17:23] VITALS: BP 132/74
--- NOTE | 2021-07-25 17:23 | SLEEP CARE CONSULTATION ---
Information from patient questionnaire entered by Alana Valle MA. I have reviewed and concur with the information entered by Alana Valle MA. This document represents the service I personally performed and the decisions made by , Inga Jaeger ARNP. History of Present Illness Service Date and Time: 07/25/2021 1604 Previous diagnosis: Very Severe, Obstructive Sleep Apnea-Hypopnea Syndrome AHI: 70.9 (in 2020) Reason for follow up: first compliance (COMPLIANCE, SET UP DATE 05/20, RESMED,) Equipment type: CPAP Equipment obtained from: [employer] (got initial supplies) Mask style: Nasal Backup mask available: No (will keep old mask when replaced) Prior sleep studies: Yes Year and Where: 2020(HST)/ 2008(in lab) [facility] Type of Sleep Study: Home sleep study HPI additional information: BETI JO was diagnosed to have very severe, AHI 70.9, obstructive sleep apnea-hypopnea syndrome and returned today for CPAP therapy first compliance follow-up. Sleep Study - Results Type of Sleep Study: Home sleep study Prior sleep studies: Yes Year and Where: 2020(HST)/ 2008(in lab) [facility] CPAP Compliance Data - Data Reviewed with Patient Average duration of nightly device use: 43 MINUTES Compliance rate %: 0 Current pressure setting (cmH2O): 5-15 (median 5.9, avg 8.3, max 8.4) Average residual AHI: 9.4 Central apnea: 3.3 Obstructive apnea: 4.8 Average large leak: 47.0 Subjective Missed days of use due to: reports: illness (COVID, APRIL UNTIL MAY COVID, ADVISED NOT USE THE CPAP WHILE SICK. ), other (HIGH STRESSFUL LATELY) Patient concerns: reports: aerophagia (has hx of gastroesophageal hernia; belching with mask on), nasal congestion (post nasal drip - occaional, has history), other (BLOATED). denies: mask discomfort, air blowing in eyes, mask leak noise, condensation in mask/hose, dry mouth, nose, throat, epistaxis Observed to snore while using device: No Current pressure setting perceived as: too high On therapy, patient: reports: more rested overall (one night it did but has not been able to use it consistently). denies: drowsiness while driving Initial [place] Sleepiness Scale score: 12 Current [place] Sleepiness Scale score: 9 (06/2021) Allergies and Home Medications Home medication list reviewed: Yes (no changes) Allergy and home medication list: Allergies probenecid Allergy (Verified 06/13/20 14:18) flushed Review of Systems Review of systems same as previous: Yes (no changes) Physical Exam Vital signs obtained and entered by: Erickson VALLE CMA AARADHA Blood Pressure: 132/74 (LEFT, PULSE 72, RESP 18, ) Heart Rate: 77 O2 Saturation: 96 (CLOTH) Height: 6 ft Weight: 252 lb Body Mass Index: 34.2 BMI Classification: Obese Impression and Plan 1. Obstructive Sleep Apnea-Hypopnea Syndrome, very severe, with poor treatment compliance and fair apnea control with elevated residual AHI. On CPAP therapy, the patient felt one night that he was more rested overall. Patient states that he received his CPAP around May 23, 2021. He states he came down with Covid and was sick for about 10 days. He states he left the machine in the box and did not start using his CPAP until July 02-. 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 He is very busy and was unable to start using the CPAP during the busy season. He has only been able to use it 6 of the last 10 days and only tolerated less than 1.5 hours nightly. He did have one morning that he was able to use the CPAP for over an hour and he did feel a difference in how rested he felt that day. This give him hope and more determination to continue with the CPAP therapy. Patient's apnea severity and rationale for treatment to reduce apnea, improve sleep quality and reduce cardiovascular and cerebrovascular events was reviewed. I also reviewed the benefit of consistent device use of CPAP for hypertension, gastric reflux and depression. Patient is working on trying to gets his VA disability paperwork together. He was originally diagnosed with sleep apnea in 2008. He is asking for a letter that will help to prove that he had sleep apnea when he was still in the service years earlier than 2008. I will review the paperwork he has brought me and if I agree that it is more likely than not, I will write up a letter for him to waste picker later. He voiced understanding. * Change auto CPAP pressure to 8-12 cmH2O * Letter for patient for his VA disability paperwork * Notify me if snoring with mask or feeling that the pressure is too much or too little * Attempt to lose weight * Call this office if any problems using CPAP * Return for follow up in 1-2 months, or sooner if concerns arise Counseling Topics: Spare mask, Weight loss health impact Visit Type: In Office Time Spent with Patient (minutes): 39 Provider Statement: I spent 100% of the Face to Face Visit with the patient with greater than 50% spent counseling the patient and coordination of care.
== END 2021-07-25 16:05 | disposition home or self-care (01) ==
LOC: SC 16:04
PROVIDERS: ATTEND Nurse Practitioner Family
DX: G47.33 Obstructive sleep apnea (adult) (pediatric) (principal); E66.9 Obesity, unspecified; Z68.34 Body mass index [BMI] 34.0-34.9, adult
CPT/HCPCS: 99214; G0463; 99212

== ENCOUNTER 2021-10-12 16:04 | Outpatient (CLI) | payer MEDICARE, OTHER | END 2021-10-12 16:05 | disposition home or self-care (01) | LOC: DI 16:04 | PROVIDERS: ATTEND Physician Assistant Medical | DX: I48.91 Unspecified atrial fibrillation (principal); I51.7 Cardiomegaly | CPT/HCPCS: 93306 ==

== ENCOUNTER 2023-02-06 15:05 | Outpatient (CLI) | payer MEDICARE, OTHER ==
--- NOTE | 2023-02-06 15:58 | Sleep Patient Instructions ---
Sleep Center Visit Summary - Patient Visit Information Reason for Visit: Annual Visit - Patient Instructions Additional Instructions: I have written a prescription for the oral appliance. Let us know when you have this completed for followup. I have also written to do a titration study to see if we can get you back on PAP therapy. We encourage you to continue to try to lose weight. Please follow up with the sleep care office after titration study and with oral appliance. - Clinic Information Contact: [facility] [address] [place] [address] [email or web address] T: [phone]
--- NOTE | 2023-02-06 16:04 | SLEEP CARE CONSULTATION ---
Information from patient questionnaire entered by Abdulkadir Newberry. I have reviewed and concur with the information entered by Abdulkadir Newberry. This document represents the service I personally performed and the decisions made by , Inga Jaeger ARNP. History of Present Illness Service Date and Time: 02/06/2023 1505 Previous diagnosis: Very Severe, Obstructive Sleep Apnea-Hypopnea Syndrome AHI: 70.9 (in 2020) Reason for follow up: annual (LAST SEEN 06/2021 NO MACHINE) Equipment type: Dental Appliance (broken in June 2022) Prior sleep studies: Yes Year and Where: 2020(HST)/ 2008(in lab) [facility] Type of Sleep Study: Home sleep study HPI additional information: BETI JO was diagnosed to have very severe, AHI 70.9, obstructive sleep apnea-hypopnea syndrome and returned today for followup to restart CPAP therapy. Sleep Study - Results Type of Sleep Study: Home sleep study Prior sleep studies: Yes Year and Where: 2020(HST)/ 2008(in lab) [facility] CPAP Compliance Data Compliance data discussion: His oral appliance broke in June 2022. He did use it every night while sleeping on his side prior to it breaking. He can no longer use his oral appliance. Subjective Initial [place] Sleepiness Scale score: 12 Current [place] Sleepiness Scale score: 10 (02/06/23) Allergies and Home Medications Known drug allergies: Yes (probenecid) Drug allergies reviewed: Yes Home medication list reviewed: Yes (as listed) Allergy and home medication list: Allergies probenecid Allergy (Verified 02/05/23 15:06) flushed Home Medications Medication Instructions Recorded Confirmed Last Taken Type Aspirin [Adult Aspirin Regimen] 81 mg PO DAILY 05/13/17 02/06/23 06/09/20 History Esomeprazole Magnesium [Nexium] 20 mg PO DAILY 05/13/17 02/06/23 06/14/20 History Febuxostat [Uloric] 40 mg PO DAILY 05/13/17 02/06/23 06/14/20 History Erenumab-Aooe [Aimovig 140 mg SQ ONCE 06/13/18 02/06/23 05/29/20 History Autoinjector] Alfuzosin HCl [Alfuzosin HCl ER] 10 mg PO DAILY 09/29/19 02/06/2306/14/21 History Cholecalciferol [Vitamin D3] 5,000 unit PO DAILY 09/29/19 02/06/23 06/14/20 History Gabapentin 300 - 600 mg PO BID 09/29/19 02/06/23 06/14/20 History Magnesium 250 mg PO DAILY 09/29/19 02/06/23 06/14/20 History Meloxicam 15 mg PO DAILY 09/29/19 02/06/23 06/14/20 History Hydrocodone/Acetaminophen 1 - 2 each PO BID 06/13/20 02/06/23 06/01/20 History [Hydrocodone-Acetamin 5-325 mg] Metoprolol Tartrate [Lopressor] 25 mg PO BID 06/13/20 02/06/23 06/14/20 History Zolmitriptan [Zomig] 1 spray NS BID PRN 06/13/20 02/06/23 06/12/20 History Tadalafil [Cialis] 2.5 mg PO DAILY 06/15/20 02/06/23 06/14/20 History oxyCODONE [Roxicodone] 5 mg PO Q4-6H #7 tab 06/15/20 02/06/23 Unknown Rx Review of Systems Review of systems same as previous: No (Atrial Fibrillation; 3 stents placed) Physical Exam Vital signs obtained and entered by: ABDULKADIR Shelby MA Blood Pressure: 118/70 (LEFT ARM) Cuff size: regular Heart Rate: 73 O2 Saturation: 97 Height: 6 ft Weight: 255 lb Body Mass Index: 34.5 BMI Classification: Obese Impression and Plan 1. Obstructive Sleep Apnea-Hypopnea Syndrome, very severe. He had been using a oral appliance for his sleep apnea but it broke in June. We had previously tried to set him up on a CPAP machine but he could not tolerate it because he could not breathe against the pressurized air. He is at his wits end and wants to get back on therapy but his dentist needs in order for me to make another oral appliance. He has very severe sleep apnea and I recommend that he actually use PAP therapy. I think he would do well in the BiPAP and will order a titration study to see if we can get him more comfortable in a PAP therapy situation. He has been diagnosed with atrial fibrillation and had 3 stents placed in his heart. He is not sleeping well and not feeling rested. Patient's apnea severity and rationale for treatment to reduce apnea, improve sleep quality and reduce cardiovascular and cerebrovascular events was reviewed. I also reviewed the benefit of consistent device use of CPAP for hypertension, cardiac disease, arrhythmia. * Oral appliance replacement device * Titration study to see if he can tolerate PAP therapy * Attempt to lose weight * Call this office if any problems * Return for follow up after titration study, or sooner if concerns arise Counseling Topics: Weight loss health impact Prescriptions: Other (Oral appliance) Plan: titration study Visit Type: In Office Time Spent with Patient (minutes): 29 Provider Statement: I spent 100% of the Face to Face Visit with the patient with greater than 50% spent counseling the patient and coordination of care.
[2023-02-06 16:12] VITALS: BP 118/70; O2SAT 97
== END 2023-02-06 15:06 | disposition home or self-care (01) ==
LOC: SC 15:05
PROVIDERS: ATTEND Nurse Practitioner Family
DX: G47.33 Obstructive sleep apnea (adult) (pediatric) (principal); E66.9 Obesity, unspecified; Z68.34 Body mass index [BMI] 34.0-34.9, adult
CPT/HCPCS: 99213; G0463; 99212

== ENCOUNTER 2023-07-28 21:14 | Outpatient (CLI) | payer MEDICARE, OTHER | END 2023-07-28 21:15 | disposition home or self-care (01) | LOC: SC 21:14 | PROVIDERS: ATTEND Nurse Practitioner Family | DX: G47.33 Obstructive sleep apnea (adult) (pediatric) (principal); G47.61 Periodic limb movement disorder | CPT/HCPCS: 95811 ==

== ENCOUNTER 2023-08-15 09:22 | Outpatient (CLI) | payer MEDICARE, OTHER ==
--- NOTE | 2023-08-15 09:39 | Sleep Patient Instructions ---
Sleep Center Visit Summary - Patient Visit Information Reason for Visit: Titration study follow-up - Patient Instructions Additional Instructions: You will be completing a sleep study an in-lab polysomnography to verify type of sleep disordered breathing before we continue to find appropriate therapy. You will follow-up in the sleep care office after the sleep study is completed to hear the results and talk about therapy, if needed. You will be called by our office staff to schedule this appointment, but you may contact us with any questions. - Clinic Information Contact: [facility] [address] [place] [id number] [email or web address] T: [phone]
--- NOTE | 2023-08-15 09:49 | SLEEP CARE CONSULTATION ---
Information from patient questionnaire entered by Abdulkadir Newberry. I have reviewed and concur with the information entered by Abdulkadir Newberry. This document represents the service I personally performed and the decisions made by , Inga Jaeger ARNP. History of Present Illness Service Date and Time: 08/15/2023 09 Initial [place] Sleepiness Scale score: 12 Current [place] Sleepiness Scale score: 5 (08/15/23) Additional HPI information: BETI JO returns for follow up of the sleep study with a manual CPAP titration study performed on 07/28/2023. The patient was informed of the following polysomnography findings: CPAP was initiated at 8 cmH2O and titrated up to CPAP at 14 cmH2O. None of the tested pressures appeared to be adequate (AHI of 8.7 per hour on the final pressure). The residual respiratory events were mostly central apneas. Oxygen saturation was minimally low. The patient appeared to have tolerated positive airway pressure therapy very well. It was recommended that the patient should have an inlaboratory polysomnography to determine the primary type of sleep-related breathing disorder. His original diagnostic in-laboratory polysomnography was 15 years ago, and the home sleep apnea test he had 3 years ago cannot be used to diagnose central sleep apnea. Sleep Study - Results Type of Sleep Study: Home sleep study (TITRATION COMPLETED 07/28/23) Prior sleep studies: Yes Year and Where: 2020(HST)/ 2008(in lab) [facility] Polysomnography/Home Sleep Study results: IMPRESSION: The quality of the study is good. CPAP was initiated at 8 cmH2O and titrated up to CPAP at 14 cmH2O. None of the tested pressures appeared to be adequate (AHI of 8.7 per hour on the final pressure). The residual respiratory events were mostly central apneas.. Oxygen saturation was minimally low. The patient appeared to have tolerated positive airway pressure therapy very well. The patients sleep efficiency was normal. The sleep architecture was relatively normal as well considering the first night effect. There was severe periodic leg movement of sleep not associated with sleep fragmentation. Cardiac rhythm was normal sinus rhythm without significant arrhythmia. No abnormal behavior (parasomnia) observed during the night. CONCLUSIONS and RECOMMENDATIONS: 1. Obstructive sleep apnea-hypopnea (ICD-10 G47.33), very severe (AHI was 70.9 by a home sleep apnea test in 2020), not adequately controlled with CPAP up to 14 cmH2O. The patient should have an inlaboratory polysomnography to determine the primary type of sleep-related breathing disorder. This is because his original diagnostic in-laboratory polysomnography was 15 years ago, and the home sleep apnea test he had 3 years ago cannot be used to diagnose central sleep apnea (HSATs are only designed and approved for diagnosing obstructive sleep apnea-hypopnea). Mask used was a [employer] Eson nasal mask size large. With a BMI of 34.6 Kg/M2 , weight loss is also recommended. 2. Periodic leg movement of sleep (ICD G47.61), severe, treatment may be indicated. Clinical correlation advised Allergies and Home Medications Known drug allergies: Yes (as listed) Drug allergies reviewed: Yes Home medication list reviewed: Yes (no changes) Allergy and home medication list: Allergies probenecid Allergy (Verified 08/13/23 10:31) flushed Review of Systems Review of systems same as previous: Yes (NO CHANGE) Physical Exam Vital signs obtained and entered by: ABDULKADIR Shelby MA Blood Pressure: 136/86 (LEFT ARM) Cuff size: long Heart Rate: 79 O2 Saturation: 95 Height: 6 ft Weight: 288 lb 6.4 oz Body Mass Index: 39.1 BMI Classification: Obese Impression and Plan 1. Obstructive Sleep Apnea-Hypopnea Syndrome, very severe, with lowest oxygen saturation of 82%. He returns to office after titration study which was unable to find optimal pressure with titration up to 14 cmH2O. He appeared to have more residual central apneas. Dr. Cain recommended him to have another in lab PSG to determine primary type of sleep related breathing disorder since his last sleep study was an HST which is best test for obstructive sleep apnea. He previous in lab PSG was 15 years ago. I recommend proceeding to polysomnography to confirm the diagnosis and to assess severity. He will also need to have a BiPAP titration study following the PSG to determine optimal pressure for control of his sleep disordered breathing. I obtained agreement to proceed. The pathophysiology of obstructive sleep apnea-hypopnea syndrome was discussed with the patient and health risks of cardiovascular and cerebrovascular disease if not treated. Patient's apnea severity and rationale for treatment to reduce apnea, improve sleep quality and reduce cardiovascular and cerebrovascular events was reviewed. I also reviewed the benefit of consistent device use of CPAP for hypertension, cardiac disease, arrhythmia. 2. Periodic limb movement, severe, that did not fragment patients sleep. Periodic limb movement of sleep (PLMS) is characterized by episodes of repetitive limb movements that occur during sleep and usually involve the lower limbs. The etiology is unknown. Sleep hygiene methods can also improve sleep as well as lifestyle changes such as regular exercise. Patient was advised that no treatment is needed at this time. If symptoms increase, then further evaluation is indicated. 3. Obesity, unspecified. Currently patients BMI is 39.1. Obesity increases the risk of apnea, CPAP pressure requirements and overall health risks especially cardiovascular and diabetes. Thus patient is advised to lose weight. * Schedule polysomnography +- manual BiPAP titration study and return in 1-2 weeks after the study to discuss result and initiate therapy. * Avoid long distance driving or driving when feeling sleepy. * Avoid alcohol, sedative and muscle relaxant around bedtime. * Attempt to lose weight. * Review instructions provided by trained office staff on how to prepare for the sleep study. * Return for follow-up after sleep study completed. Counseling Topics: Weight loss health impact Follow up with Sleep Care in: other Plan: PSG and then BiPAP titration Visit Type: In Office Time Spent with Patient (minutes): 23 Provider Statement: I spent 100% of the Face to Face Visit with the patient with greater than 50% spent counseling the patient and coordination of care.
[2023-08-15 09:51] VITALS: BP 136/86; O2SAT 95
== END 2023-08-15 09:23 | disposition home or self-care (01) ==
LOC: SC 09:22
PROVIDERS: ATTEND Nurse Practitioner Family
DX: G47.33 Obstructive sleep apnea (adult) (pediatric) (principal); G47.61 Periodic limb movement disorder; E66.9 Obesity, unspecified; Z68.39 Body mass index [BMI] 39.0-39.9, adult
CPT/HCPCS: 99213; G0463; 99212

== ENCOUNTER 2023-10-06 20:25 | Outpatient (CLI) | payer MEDICARE, OTHER | END 2023-10-06 20:26 | disposition home or self-care (01) | LOC: SC 20:25 | PROVIDERS: ATTEND Nurse Practitioner Family | DX: G47.33 Obstructive sleep apnea (adult) (pediatric) (principal); I49.9 Cardiac arrhythmia, unspecified; I11.9 Hypertensive heart disease without heart failure | CPT/HCPCS: 95810 ==

== ENCOUNTER 2023-10-14 20:46 | Outpatient (CLI) | payer MEDICARE, OTHER | END 2023-10-14 20:47 | disposition home or self-care (01) | LOC: SC 20:46 | PROVIDERS: ATTEND Nurse Practitioner Family | DX: G47.39 Other sleep apnea (principal); G47.61 Periodic limb movement disorder | CPT/HCPCS: 95810 ==

== ENCOUNTER 2023-11-05 08:50 | Outpatient (CLI) | payer MEDICARE, OTHER ==
--- NOTE | 2023-11-05 09:26 | Sleep Patient Instructions ---
Sleep Center Visit Summary - Patient Visit Information Reason for Visit: PSG and titration study follow-up - Patient Instructions Additional Instructions: You are being started on BiPAP therapy with pressure setting at EPAP 11 cmH2O with 0-15 cmH2O pressure support and backup rate. You will need to call the sleep care office to set up your follow up once you have your BiPAP machine to check compliance and response to therapy at that time. You may call the office with any concerns about pressure feeling too low or too much for adjustment, if needed. You should contact DME supplier for any questions or concerns about mask or equipment. Please call office to schedule a follow up appointment in the sleep care office one month after obtaining new device. - Clinic Information Contact: [facility] [address] [place] [address] [email or web address] T: [phone]
--- NOTE | 2023-11-05 09:32 | SLEEP CARE CONSULTATION ---
Information from patient questionnaire entered by Pema Newberry. I have reviewed and concur with the information entered by Pema Newberry. This document represents the service I personally performed and the decisions made by , Inga Jaeger ARNP. History of Present Illness Service Date and Time: 11/05/2023 0850 Initial [place] Sleepiness Scale score: 12 Current [place] Sleepiness Scale score: 9 Additional HPI information: BETI JO returns for follow up of the diagnostic sleep study done on 10/06/2023 with a manual BiPAP titration study performed on 10/14/2023. The patient was informed of the following polysomnography findings: 1. Respiratory monitoring showed very severe obstructive sleep apnea-hypopnea (AHI = 76.5) associated with frequent arousals, oxyhemoglobin desaturation and moderate hypoxia (jenise oxygen saturation of 62%). 2. BiPAP S/T was initiated at 13/9 cmH2O and titrated up to BiPAP ASV. BiPAP ASV set at EPAP minimum of 11 and pressure support 0 - 15 cmH2O appeared to be optimal (AHI of 0 per hour on the pressure). There was supine REM sleep on the pressure. Oxygen saturation was minimally low. CPAP was ineffective based on his previous CPAP titration study. The patient appeared to have tolerated positive airway pressure therapy well. After some discussion, the patient will continue with the BiPAP ASV therapy. BiPAP ASV set as described above will be ordered with rationale explained. Patient counseled not drink alcohol less than 4 hours before bedtime as it can increase snoring and apnea. Patient was cautioned about risks of drowsy driving until sleepiness symptoms resolve. Patient denies drowsy driving. Sleep Study - Results Type of Sleep Study: Home sleep study (TITRATION COMPLETED 07/28/23, COMPLETED 10/14/23) Prior sleep studies: Yes Year and Where: 2020(HST)/ 2008(in lab) [facility] Polysomnography/Home Sleep Study results: Diagnostic PSG dated 10/06/2023: IMPRESSION: The quality of the study is good. The patient had slightly reduced sleep efficiency due to two prolonged awakenings during the night. The sleep architecture was abnormal for sleep fragmentation and lack of slow wave sleep (N3). Respiratory monitoring showed very severe obstructive sleep apnea-hypopnea (AHI = 76.5) associated with frequent arousals, oxyhemoglobin desaturation and moderate hypoxia (jenise oxygen saturation of 62%). The respiratory events occurred independently of sleep stage and body position (supine AHI = 78.8; nonsupine = 76.31). Baseline oxygen saturation was low-normal. Snore was moderate to loud in intensity. There was no significant periodic leg movement of sleep. Cardiac rhythm was sinus rhythm with frequent premature ventricular contractions. No abnormal behavior (parasomnia) observed during the night. BiPAP titration dated 10/14/2023: IMPRESSION: The quality of the study is good. BiPAP S/T was initiated at 13/9 cmH2O and titrated up to BiPAP ASV. BiPAP ASV set at EPAP minimum of 11 and pressure support 0 - 15 cmH2O appeared to be optimal (AHI of 0 per hour on the pressure). There was supine REM sleep on the pressure. Oxygen saturation was minimally low. CPAP was ineffective based on his previous CPAP titration study. The patient appeared to have tolerated positive airway pressure therapy well. The patients sleep efficiency was slightly reduced. The sleep architecture was relatively normal considering the first-night effect. There was severe periodic leg movement of sleep not associated with sleep fragmentation. Cardiac rhythm was sinus rhythm with frequent premature ventricular contractions, occasionally in trigeminy. No abnormal behavior (parasomnia) observed during the night. CONCLUSIONS and RECOMMENDATIONS: 1. 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 CPAP was ineffective in controlling the treatment emergent central apneas during his previous titration study. Mask used was a [employer] Eson 2 nasal mask. With BMI of 39.1 Kg/M2 , weight loss is also recommended. 2. Periodic leg movement of sleep (ICD G47.61), severe, treatment may be indicated. Clinical correlation advised. Allergies and Home Medications Known drug allergies: Yes (as listed) Drug allergies reviewed: Yes Home medication list reviewed: Yes (no changes) Allergy and home medication list: Allergies probenecid Allergy (Verified 11/01/23 10:26) flushed Review of Systems Review of systems same as previous: Yes (no changes) Physical Exam Vital signs obtained and entered by: INGA KNAPP Blood Pressure: 123/102 Cuff size: long (left arm) Heart Rate: 65 O2 Saturation: 98 Height: 6 ft Weight: 256 lb 12.8 oz Body Mass Index: 34.8 BMI Classification: Obese Impression and Plan 1. Complex Sleep Apnea-Hypopnea Syndrome, very severe, with lowest oxygen saturation of 62%. Obviously this is the cause of the patients symptoms of unrefreshed sleep, and excessive daytime sleepiness. Positive pressure therapy could benefit hypertension, cardiac disease and arrhythmia. The patient will be started on nasal BiPAP ASV therapy. His pressure will be set at BiPAP ASV, EPAP 11 cmH2O and pressure support 015 cmH2O with automatic backup rate. Compliance guidelines also reviewed. A copy of compliance guidelines will be given for reference at check out. 2. Hypoxemia, moderate, with a jenise oxygen saturation of 62% and 170.3 minutes spent under 90%. The baseline oxygen saturation was low normal with an average oxygen saturation of 88%. Improved while using BiPAP during titration study to jenise 86% and 1.6 minutes spent under 90% and average oxygen saturation of 92%. 3. Periodic limb movement, severe, that did not fragment patients sleep. Periodic limb movement of sleep (PLMS) is characterized by episodes of repetitive limb movements that occur during sleep and usually involve the lower limbs. The etiology is unknown. Patient was advised that no treatment is needed at this time. If symptoms increase, then further evaluation is indicated. 4. Obesity, unspecified. Currently patients BMI is 34.8. Obesity increases the risk of apnea, CPAP pressure requirements and overall health risks especially cardiovascular and diabetes. Thus patient is advised to lose weight. * Nasal BiPAP ASV therapy, pressure at EPAP 11 cmH2O and pressure support 0-15 w ith automatic backup rate. * Attempt to lose weight. * Avoid alcohol consumption near bedtime. * The patient is again cautioned about driving until sleepiness completely resolves. * Return one month after BiPAP obtained. I will assess response to therapy and compliance at that time. Counseling Topics: Weight loss health impact Prescriptions: BiPAP Plan: start BiPAP ASV and compliance followup Visit Type: In Office Time Spent with Patient (minutes): 23 Provider Statement: I spent 100% of the Face to Face Visit with the patient with greater than 50% spent counseling the patient and coordination of care.
[2023-11-05 09:34] VITALS: BP 123/102; O2SAT 98
== END 2023-11-05 08:51 | disposition home or self-care (01) ==
LOC: SC 08:50
PROVIDERS: ATTEND Nurse Practitioner Family
DX: G47.39 Other sleep apnea (principal); R09.02 Hypoxemia; G47.61 Periodic limb movement disorder; E66.9 Obesity, unspecified; Z68.34 Body mass index [BMI] 34.0-34.9, adult
CPT/HCPCS: 99213; G0463; 99212

== ENCOUNTER 2023-12-26 09:52 | Outpatient (CLI) | payer MEDICARE, OTHER ==
--- NOTE | 2023-12-26 10:31 | Sleep Patient Instructions ---
Sleep Center Visit Summary - Patient Visit Information Reason for Visit: First compliance for PAP therapy - Patient Instructions Additional Instructions: You were here for follow up of BiPAP ASV therapy. You will be continued on BiPAP therapy with pressure at 11 cmH2O with pressure support. You should follow up with sleep care in 3 months. You may contact us sooner for any questions or concerns. - Clinic Information Contact: [facility] [address] [place] [id number] [email or web address] T: [phone]
--- NOTE | 2023-12-26 10:35 | SLEEP CARE CONSULTATION ---
Information from patient questionnaire entered by Nain Valdez. I have reviewed and concur with the information entered by Nain Valdez. This document represents the service I personally performed and the decisions made by , Inga Jaeger ARNP. History of Present Illness Service Date and Time: 12/26/2023 0952 Previous diagnosis: Very Severe, Obstructive Sleep Apnea-Hypopnea Syndrome AHI: 76.5 (in 2020) Reason for follow up: first compliance Equipment type: ASV (AirCurve 10 ASV; s/u 11/08/23) Equipment obtained from: Other ([employer]; getting supplies) Mask style: Nasal Backup mask available: No (will keep old mask when replaced) Prior sleep studies: Yes Year and Where: 2023 (PSG)/2020(HST)/ 2008(in lab) [facility] Type of Sleep Study: Home sleep study (TITRATION COMPLETED 07/28/23, COMPLETED 10/14/23) HPI additional information: BETI JO was diagnosed to have very severe, AHI 76.5, obstructive sleep apnea-hypopnea syndrome and returned today for BiPAP ASV therapy first compliance follow-up. Sleep Study - Results Type of Sleep Study: Home sleep study (TITRATION COMPLETED 07/28/23, COMPLETED 10/14/23) Prior sleep studies: Yes Year and Where: 2023 (PSG)/2020(HST)/ 2008(in lab) [facility] CPAP Compliance Data - Data Reviewed with Patient Average duration of nightly device use: 6 h 36 min Compliance rate %: 83 (11/08/23-12/07/23; 28/30 days used) Current pressure setting (cmH2O): Epap 11 with 0-14 pressure support Average residual AHI: 1.2 Obstructive apnea: 0.1 Hypopnea: 1.1 Average large leak: 16.8 L/min Subjective Missed days of use due to: reports: illness, travel Patient concerns: reports: mask discomfort (skin irritation from straps), air blowing in eyes, mask leak noise, nasal congestion. denies: aerophagia, condensation in mask/hose, dry mouth, nose, throat, epistaxis Observed to snore while using device: No Current pressure setting perceived as: comfortable On therapy, patient: reports: sleeping better, awakening more refreshed, being more awake and alert during the day, more rested overall. denies: drowsiness while driving Initial [place] Sleepiness Scale score: 12 (2008) Current [place] Sleepiness Scale score: 6 (12/26/23) Allergies and Home Medications Known drug allergies: Yes (as listed) Drug allergies reviewed: Yes Home medication list reviewed: Yes (no changes) Allergy and home medication list: Allergies probenecid Allergy (Verified 11/01/23 10:26) flushed Review of Systems Review of systems same as previous: Yes (no changes) Physical Exam Vital signs obtained and entered by: Inga Dumont NP Blood Pressure: 111/71 Cuff size: long (right arm) Heart Rate: 65 O2 Saturation: 97 Height: 6 ft Weight: 257 lb 6.4 oz Body Mass Index: 34.9 BMI Classification: Obese Impression and Plan 1. Obstructive Sleep Apnea-Hypopnea Syndrome, very severe, with good treatment compliance and good apnea control. On BiPAP therapy, the patient has better sleep quality and is more rested overall. He has significant improvement of his sleep apnea and is comfortable with current pressures. He was doing really well in the first month of use but his use has not been as consistent because he had more difficulties with pain, anxiety and not being able to tolerate the mask all night. He is working on this to increase time in his mask again. He has sufficient control of sleep apnea with current pressure settings on his ASV and no adjustments are needed today. Patient's apnea severity and rationale for treatment to reduce apnea, improve sleep quality and reduce cardiovascular and cerebrovascular events was reviewed. I also reviewed the benefit of consistent device use of BiPAP for hypertension, cardiac disease, arrhythmia. 2. Obesity, unspecified. Currently patients BMI is 34.9. Obesity increases the risk of apnea, BiPAP pressure requirements and overall health risks especially cardiovascular and diabetes. Thus patient is advised to lose weight. * Continue BiPAP ASV pressure at EPAP 11 cmH2O with 0-14 cmH2O pressure support * Notify me if snoring with mask or feeling that the pressure is too much or too little * Attempt to lose weight * Call this office if any problems using CPAP * Return for follow up in 3 months, or sooner if concerns arise Counseling Topics: Spare mask, Weight loss health impact Follow up with Sleep Care in: 3 months Visit Type: In Office Time Spent with Patient (minutes): 29 Provider Statement: I spent 100% of the Face to Face Visit with the patient with greater than 50% spent counseling the patient and coordination of care.
[2023-12-26 10:44] VITALS: BP 111/71; O2SAT 97
== END 2023-12-26 09:53 | disposition home or self-care (01) ==
LOC: SC 09:52
PROVIDERS: ATTEND Nurse Practitioner Family
DX: G47.33 Obstructive sleep apnea (adult) (pediatric) (principal); E66.9 Obesity, unspecified; Z68.34 Body mass index [BMI] 34.0-34.9, adult
CPT/HCPCS: 99213; G0463; 99212